=== PATIENT | female | born 1990 | race Caucasian/White ===

== ENCOUNTER 2019-06-23 18:25 | Emergency (ER) | payer SELFPAY ==
--- NOTE | 2019-06-23 19:26 | EDM.PDOC ---
ED HPI GENERAL MEDICAL PROBLEM - General Chief Complaint: General Stated Complaint: INJURY ON LEFT HAND Time Seen by Provider: 06/23/19 19:25 Source of Information: Reports: Patient History Limitations: Reports: No Limitations - History of Present Illness INITIAL COMMENTS - FREE TEXT/NARRATIVE: HISTORY AND PHYSICAL: History of present illness: Patient is a 29-year-old female presents to the ED with complaint of a growth on her left ring finger. She states she it has been present x 2 weeks but today it started turning green. She denies pain, fevers, chills, injury or trauma. She denies significant past medical history. Review of systems: As per history of present illness and below otherwise all systems reviewed and negative. Past medical history: As per history of present illness and as reviewed below otherwise noncontributory. Surgical history: As per history of present illness and as reviewed below otherwise noncontributory. Social history: No reported history of drug or alcohol abuse. Family history: As per history of present illness and as reviewed below otherwise noncontributory. Physical exam: General: Patient sitting comfortably in no acute distress and nontoxic appearing HEENT: Atraumatic, normocephalic, pupils reactive, negative for conjunctival pallor or scleral icterus, mucous membranes moist, throat clear, neck supple, nontender, trachea midline. No meningeal signs. Lungs: Clear to auscultation, breath sounds equal bilaterally, chest nontender. Heart: S1S2, regular, negative for clicks, rubs, or overt murmur. Abdomen: Soft, nondistended, nontender. Negative for masses or hepatosplenomegaly. Negative for costovertebral tenderness. No rigidity, rebound , guarding. Pelvis: Stable nontender. Genitourinary: Deferred. Rectal: Deferred. Extremities: There is a 0.5cm raised lesion to the montgomery aspect of the left ring finger between the CMP and PIP. Atraumatic, negative for cords or calf pain. Neurovascular unremarkable. Neuro: Awake, alert, oriented. Cranial nerves II through XII unremarkable. Cerebellum unremarkable. Motor and sensory unremarkable throughout. Exam nonfocal. Notes: Diagnostics: hand x-ray Therapeutics: 1g Rocephin IM Prescriptions: bactrim Impression: cellulitis Plan: Take antibiotic as instructed Follow up with primary care provided and hand surgery as discussed Return to ED as needed as discussed Definitive disposition and diagnosis as appropriate pending reevaluation and review of above. - Related Data Allergies Allergy/AdvReac Type Severity Reaction Status Date / Time morphine AdvReac Mild Burning Verified 11/03/18 11:59 [facility] Home Meds: Home Meds Sulfamethoxazole/Trimethoprim [Bactrim Ds Tablet] 1 each PO 14 #7 tablet [Rx] Past Medical History HEENT History: Reports: Impaired Vision Cardiovascular History: Reports: Syncope, Other (See Below) Other Cardiovascular History: atypical chest pain Respiratory History: Reports: Asthma Gastrointestinal History: Reports: Other (See Below) Other Gastrointestinal History: gastropareis, esophagitis, gastritis, duodenitis Genitourinary History: Reports: None RACKING 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 (See Below) Other RACKING TECHNICIAN History: breast lumpectomy Musculoskeletal History: Reports: None Neurological History: Reports: None Psychiatric History: Reports: Anxiety, Depression Endocrine/Metabolic History: Reports: Obesity/BMI 30+ Hematologic History: Reports: None Immunologic History: Reports: None Oncologic (Cancer) History: Reports: None Dermatologic History: Reports: Other (See Below) Other Dermatologic History: hirtuism - Past Surgical History Head Surgeries/Procedures: Reports: None HEENT Surgical History: Reports: Oral Surgery Cardiovascular Surgical History: Reports: None Respiratory Surgical History: Reports: None GI Surgical History: Reports: Cholecystectomy, Colonoscopy, EGD Female Surgical History: Reports: None Endocrine Surgical History: Reports: None Neurological Surgical History: Reports: None Musculoskeletal Surgical History: Reports: None Oncologic Surgical History: Reports: None Dermatological Surgical History: Reports: None Social & Family History - Tobacco Use Smoking Status *Q: Never Smoker Second Hand Smoke Exposure: No - Caffeine Use Caffeine Use: Reports: Coffee - Recreational Drug Use Recreational Drug Use: No ED ROS GENERAL - Review of Systems Review Of Systems: ROS reveals no pertinent complaints other than HPI. ED EXAM, GENERAL - Physical Exam Exam: See Below (see dictation) Course - Vital Signs Last Recorded V/S: Last Vital Signs Temp 96.9 F 06/23/19 19:18 Pulse 82 06/23/19 21:13 Resp 16 06/23/19 21:13 BP 131/91 H 06/23/19 21:13 Pulse Ox 98 06/23/19 21:13 - Orders/Labs/Meds Meds: Medications Discontinued Medications Generic Name Dose Route Start Last Admin Trade Name Elizabeth PRN Reason Stop Dose Admin Ceftriaxone Sodium 1 gm 06/23/19 20:42 06/23/19 21:12 Rocephin IM 06/23/19 20:43 1 gm ONETIME ONE Administration Lidocaine HCl 5 ml 06/23/19 21:02 06/23/19 21:12 Xylocaine-Mpf 1% INJECT 06/23/19 21:03 5 ml ONETIME ONE Administration Lidocaine HCl Confirm 06/23/19 21:02 06/23/19 22:35 Xylocaine-Mpf 1% Administered 06/23/19 21:03 Not Given Dose 5 ml .ROUTE .STK-MED ONE Departure - Departure Time of Disposition: 20:52 Disposition: Home, Self-Care 01 Condition: Good Clinical Impression: Cellulitis - Discharge Information Prescriptions: Sulfamethoxazole/Trimethoprim [Bactrim Ds Tablet] 1 each PO 14 #7 tablet Instructions: Cellulitis, Adult, [id number] Referrals: PCP,None [Primary Care Provider] - Forms: ED Department Discharge Additional Instructions: The following information is given to patients seen in the emergency department who are being discharged to home. This information is to outline your options for follow-up care. We provide all patients seen in our emergency department with a follow-up referral. The need for follow-up, as well as the timing and circumstances, are variable depending upon the specifics of your emergency department visit. If you don't have a primary care physician on staff, we will provide you with a referral. We always advise you to contact your personal physician following an emergency department visit to inform them of the circumstance of the visit and for follow-up with them and/or the need for any referrals to a consulting specialist. The emergency department will also refer you to a specialist when appropriate. This referral assures that you have the opportunity for follow-up care with a specialist. All of these measure are taken in an effort to provide you with optimal care, which includes your follow-up. Under all circumstances we always encourage you to contact your private physician who remains a resource for coordinating your care. When calling for follow-up care, please make the office aware that this follow-up is from your recent emergency room visit. If for any reason you are refused follow-up, please contact the [facility] Emergency Department at and asked to speak to the emergency department charge nurse. AVINASH [facility] [address] [place] [address] [id number] Take antibiotic as instructed Follow up with primary care provided and hand surgery as discussed Return to ED as needed as discussed
--- NOTE | 2019-06-23 20:34 | CR ---
INDICATION: Lump on 4th finger with pain full drainage, green in color. COMPARISON: None available. FINDINGS: The left 4th finger was examined with PA, lateral and oblique views for a total of three views. There is no sign of fracture or dislocation. There is a region of soft tissue swelling along the anterior and radial aspect of the proximal 4th finger, adjacent to the distal shaft of the 4th proximal phalanx. This is consistent with cellulitis. I do not see any distinct soft tissue gas or foreign body. Nothing is seen that would suggest an abscess. There is no sign of any adjacent osseous destruction to suggest osteomyelitis. No significant degenerative changes are seen. IMPRESSION: Findings consistent with cellulitis of the anterior-radial aspect of the proximal 4th finger with no sign of any abscess, foreign body, or osteomyelitis. Normal appearance of the osseous structures of the 4th finger. Dictated by Carlo Kapoor MD @ Jun 23 2019 8:30PM Signed by Dr. Carlo Kapoor @ Jun 23 2019 8:32PM
[2019-06-23] MEDS ORDERED: cefTRIAXone 1 GM Vial IM ONE (20:42)
== END 2019-06-23 21:18 | disposition home or self-care (01) ==
LOC: MW.ED 18:25
DX: L03.114 Cellulitis of left upper limb (principal); E66.9 Obesity, unspecified; Z68.42 Body mass index [BMI] 45.0-49.9, adult; Z88.6 Allergy status to analgesic agent
CPT/HCPCS: 73140; 96372; 99283; J0696; J2001